=== PATIENT | female | born 1960 | race Caucasian/White ===

== ENCOUNTER 2022-04-15 15:45 | Outpatient (RCR) | payer BC, SELFPAY | END 2022-05-11 14:38 | disposition home or self-care (01) | PROVIDERS: Visit Provider Orthopaedic Surgery Sports Medicine | DX: M76.891 Other specified enthesopathies of right lower limb, excluding foot (principal); Z51.89 Encounter for other specified aftercare | CPT/HCPCS: 97032; 97110; 97140; 97161; 97535 ==

== ENCOUNTER 2022-05-21 09:27 | Outpatient (CLI) | payer BC, SELFPAY ==
[2022-05-21 22:05] LABS: C Reactive Protein* 1.3 mg/dL (0.5-1.0)
== END 2022-05-21 09:28 | disposition home or self-care (01) ==
PROVIDERS: Visit Provider Orthopaedic Surgery Sports Medicine
DX: M25.561 Pain in right knee (principal); E66.01 Morbid (severe) obesity due to excess calories
CPT/HCPCS: 83520; 86140

== ENCOUNTER 2022-06-02 11:32 | Outpatient (CLI) | payer BC, SELFPAY ==
--- NOTE | 2022-06-02 11:30 | CRLHL7_ITS ---
For Patients: As a result of the Century Cures Act, medical imaging exams and procedure reports are released immediately into your electronic medical record. You may view this report before your referring provider. If you have questions, please contact your health care provider. HISTORY: 62-year-old female. Status post bilateral knee replacements. Right knee pain. TECHNIQUE: 24.8 millicuries of [id number] was injected intravenously. Three phase images of the knees were obtained. FINDINGS: The blood flow and blood pool images are unremarkable. The delayed images demonstrate bilateral knee replacements. There is abnormally increased uptake adjacent to the right knee prosthetic components. This is greatest adjacent to the right tibial prosthetic component. This is suspicious for loosening. There is no convincing evidence of loosening of the left knee prosthesis. IMPRESSION: There are findings suspicious for loosening of the right knee prosthesis. The area of greatest abnormality is adjacent to the tibial prosthetic component. Dictated by Kasi Schwartz MD @ 06/02/2022 3:57:29 PM (Electronically Signed)
== END 2022-06-02 11:33 | disposition home or self-care (01) ==
LOC: NM 11:33
PROVIDERS: Visit Provider Orthopaedic Surgery Sports Medicine
DX: M25.561 Pain in right knee (principal); T84.032A Mechanical loosening of internal right knee prosthetic joint, initial encounter; Z96.651 Presence of right artificial knee joint
CPT/HCPCS: 78315; A9503